=== PATIENT | female | born 1975 | race Caucasian/White ===

== ENCOUNTER 2017-08-02 20:33 | Outpatient (CLI) | payer MEDICAID ==
[2017-08-02 21:02] VITALS: BP 122/76
== END 2017-08-02 21:49 | disposition home or self-care (01) ==
LOC: WFO 20:33 → FBP 20:35 → WFO 21:49
PROVIDERS: ATTEND Obstetrics & Gynecology
DX: O99.612 Diseases of the digestive system complicating pregnancy, second trimester (principal); K59.00 Constipation, unspecified; Z3A.25 25 weeks gestation of pregnancy
CPT/HCPCS: 99212